=== PATIENT | female | born 1955 | race Caucasian/White ===

== ENCOUNTER → 2016-08-30 | Outpatient (CLI) | payer BC ==
[~2016-08-30] MED LIST: BIOTIN PO; CITRACAL-VIT D1 EAC1 PO; CORTEF10 M1 PO; COZAAR50 MG PO; CRANBERRY400 MG PO; CYCLOBENZAPRINE5 MG PO; CYMBALTA30 MG PO; CYMBALTA60 MG PO; ELAVIL50 MG PO; FLONASE 50 MCG/16 GM NOSE; KLONOPIN1 MG PO; LEVOTHROID (S125 MCG PO; LOPRESSOR25 MG PO; METAMUCIL PACKE1 PKT PO; NEURONTIN400 MG PO; NORVASC5 MG PO; PREMARIN VAG30 GM VAG; PROVIGIL200 MG PO; REQUIP3 MG PO; THERA-VITE W/ B1 TAB PO; VENLAFAXINE H37.5 MG PO; VITAMIN D35000 UNI1 PO
== END | disposition disaster alternative care site (69) ==
LOC: GBCOE 12:23
DX: Z12.31 Encounter for screening mammogram for malignant neoplasm of breast (principal)
CPT/HCPCS: G0202